=== PATIENT | female | born 1950 | race Caucasian/White ===

== ENCOUNTER 2019-05-24 10:32 | Emergency (ER) | payer MEDICARE, MEDICAID ==
[~2019-05-24] VITALS: Ht 167.6 cm; Wt 65.9 kg
[~2019-05-24 10:32] MED LIST: ALBUTEROL SUL0.083 % IN; AMOXICILLIN500 MG PO; ANTI-FUNGAL12 TOP; CLINDAMYCIN HC150 MG PO; SINGULAIR10 MG PO; nebulizer
[2019-05-24 11:11] LABS: HEMATOCRIT 40.4 % (37.0-47.0); HEMOGLOBIN 13.4 g/dl (12.0-16.0); IMMATURE GRANULOCYTES 0.2 % (0.0-5.0); MEAN CELL VOLUME 92.7 fL CALC (80.0-100.0); MEAN CORPUSCULAR HGB 30.7 pG CALC (26.0-32.0); MEAN CORPUSCULAR HGB CONC 33.2 g/L CALC (32.0-36.0); NEUT# 2.22 thou/uL (2.00-7.15); RED BLOOD COUNT 4.36 mill/uL (4.20-5.60); RED CELL DISTRI WIDTH 12.6 % (11.5-15.5)
[2019-05-24 11:29] LABS: ANION GAP 15 (6-22 (CALC)); BUN 9 mg/dL (8-23); BUN/CREATININE RATIO 30 (12-20 (CALC)); CARBON DIOXIDE 31 mmol/l (22-30); CHLORIDE 89 mmol/l (95-108); CREATININE 0.3 mg/dL (0.5-1.0); GFR > 60 ML/MIN (>=60 (CALC)); GFR FOR AFR.AMER. > 60 ML/MIN (>=60 (CALC)); POTASSIUM 4.3 mmol/l (3.5-5.1); SODIUM 132 mmol/l (137-146)
[2019-05-24] MEDS ORDERED: VISTARIL 50MG C50 M1 PO (11:49)
[2019-05-24 12:08] VITALS: BP 156/75
== END 2019-05-24 12:22 | disposition home or self-care (01) ==
LOC: ED 10:32
PROVIDERS: Family Medicine
DX: F41.9 Anxiety disorder, unspecified (principal); J44.9 Chronic obstructive pulmonary disease, unspecified

== ENCOUNTER 2020-10-31 15:56 | Emergency (ER) | payer MEDICARE, MEDICAID ==
[~2020-10-31] VITALS: Ht 167.6 cm; Wt 45.0 kg
[~2020-10-31 15:56] MED LIST changes: +VISTARIL 50MG C50 M1 PO
[2020-10-31 17:15] LABS: HEMATOCRIT 20.2 % (37.0-47.0); IMMATURE GRANULOCYTES 0.5 % (0.0-5.0); MEAN CELL VOLUME 99.5 fL CALC (80.0-100.0); MEAN CORPUSCULAR HGB 31.5 pG CALC (26.0-32.0); MEAN CORPUSCULAR HGB CONC 31.7 g/dL CAL (32.0-36.0); NEUT# 9.05 thou/uL (2.00-7.15); RED BLOOD COUNT 2.03 mill/uL (4.20-5.60); RED CELL DISTRI WIDTH 13.5 % (11.5-15.5)
[2020-10-31 17:18] LABS: HEMOGLOBIN 6.4 g/dl (12.0-16.0)
[2020-10-31 17:29] LABS: ALKALINE PHOSPHATASE 48 u/l (38-126); ANION GAP 10 (6-22 (CALC)); BILIRUBIN, TOTAL 0.4 mg/dL (0.0-1.4); BUN 16 mg/dL (8-23); BUN/CREATININE RATIO 28 (12-20 (CALC)); CARBON DIOXIDE 33 mmol/l (22-30); CHLORIDE 92 mmol/l (95-108); CREATININE 0.6 mg/dL (0.5-1.0); GFR > 60 ML/MIN (>=60 (CALC)); GFR FOR AFR.AMER. > 60 ML/MIN (>=60 (CALC)); POTASSIUM 4.7 mmol/l (3.5-5.1); SGOT/AST 54 u/l (9-36); SODIUM 130 mmol/l (137-146)
[2020-10-31 18:19] LABS: URINE BILIRUBIN - DIPSTICK NEGATIVE (NEGATIVE); URINE BLOOD DIPSTICK MODERATE (NEGATIVE); URINE COLOR YELLOW; URINE GLUCOSE - DIPSTICK NEGATIVE (NEGATIVE); URINE KETONE NEGATIVE (NEGATIVE); URINE LEUK ESTERASE NEGATIVE (NEGATIVE); URINE PROTEIN - DIPSTICK NEGATIVE (NEG-TRACE); URINE SPECIFIC GRAVITY 1.025; URINE UROBILINOGEN - DIPSTICK 0.2 E.U./dL (0.2)
[2020-10-31 18:29] LABS: URINE NITRITE - DIPSTICK NEGATIVE (Negative)
[2020-10-31 19:06] LABS: URINE SQUAMOUS EPITHELIAL CELL FEW EPI/hpf (0-FEW); URINE WBC 0-2 WBC/hpf (0-5)
[2020-10-31 20:46] VITALS: BP 144/75
[2020-10-31 22:07] VITALS: BP 144/75
== END 2020-10-31 22:07 | disposition short-term general hospital (02) ==
LOC: ED 15:56
PROVIDERS: Emergency Medicine
PROC: 30233N1 Transfusion of Nonautologous Red Blood Cells into Peripheral Vein, Percutaneous Approach (ICD-10-PCS; principal; 2020-10-31)
DX: N93.9 Abnormal uterine and vaginal bleeding, unspecified (principal); D50.0 Iron deficiency anemia secondary to blood loss (chronic); E87.1 Hypo-osmolality and hyponatremia; J44.9 Chronic obstructive pulmonary disease, unspecified; N83.201 Unspecified ovarian cyst, right side
CPT/HCPCS: P9016

== ENCOUNTER 2021-06-15 11:46 | Day surgery (SDC) | payer MEDICARE, MEDICAID ==
[2021-06-15] MEDS ORDERED: B12 FAST DIS5000 MCG PO (11:54)
[2021-06-15 15:49] VITALS: BP 108/69
== END 2021-06-15 15:52 | disposition home or self-care (01) ==
LOC: ORM 11:46
PROVIDERS: ATTEND Urology
PROC: 0T768DZ Dilation of Right Ureter with Intraluminal Device, Via Natural or Artificial Opening Endoscopic (ICD-10-PCS; principal; 2021-06-15)
PROC: 0TP98DZ Removal of Intraluminal Device from Ureter, Via Natural or Artificial Opening Endoscopic (ICD-10-PCS; 2021-06-15)
PROC: BT141ZZ Fluoroscopy of Kidneys, Ureters and Bladder using Low Osmolar Contrast (ICD-10-PCS; 2021-06-15)
DX: N13.1 Hydronephrosis with ureteral stricture, not elsewhere classified (principal); C53.9 Malignant neoplasm of cervix uteri, unspecified; J44.9 Chronic obstructive pulmonary disease, unspecified; E87.1 Hypo-osmolality and hyponatremia; Z99.81 Dependence on supplemental oxygen; Z87.891 Personal history of nicotine dependence; Z92.3 Personal history of irradiation; Z92.21 Personal history of antineoplastic chemotherapy
CPT/HCPCS: C1769; J1956

== ENCOUNTER 2021-10-26 07:35 | Day surgery (SDC) | payer MEDICARE, MEDICAID ==
[~2021-10-26] VITALS: Ht 165.1 cm; Wt 52.2 kg
[~2021-10-26 07:35] MED LIST changes: +B12 FAST DIS5000 MCG PO
[2021-10-26 10:08] VITALS: BP 164/95
== END 2021-10-26 10:05 | disposition home or self-care (01) ==
LOC: ORM 07:35
PROVIDERS: ATTEND Urology
PROC: 0T768DZ Dilation of Right Ureter with Intraluminal Device, Via Natural or Artificial Opening Endoscopic (ICD-10-PCS; principal; 2021-10-26)
PROC: 0TP98DZ Removal of Intraluminal Device from Ureter, Via Natural or Artificial Opening Endoscopic (ICD-10-PCS; 2021-10-26)
PROC: BT1D1ZZ Fluoroscopy of Right Kidney, Ureter and Bladder using Low Osmolar Contrast (ICD-10-PCS; 2021-10-26)
DX: N13.0 Hydronephrosis with ureteropelvic junction obstruction (principal); J44.9 Chronic obstructive pulmonary disease, unspecified; E87.1 Hypo-osmolality and hyponatremia; Z99.81 Dependence on supplemental oxygen; Z87.891 Personal history of nicotine dependence; Z85.41 Personal history of malignant neoplasm of cervix uteri; Z92.3 Personal history of irradiation; Z92.21 Personal history of antineoplastic chemotherapy
CPT/HCPCS: C1769; J1956; Q9967

== ENCOUNTER 2022-02-15 12:48 | Emergency (ER) | payer MEDICARE ==
[~2022-02-15] VITALS: Ht 165.1 cm; Wt 53.3 kg
[2022-02-15 13:55] LABS: HEMATOCRIT 37.1 % (37.0-47.0); IMMATURE GRANULOCYTES 0.2 % (0.0-5.0); MEAN CELL VOLUME 93.5 fL CALC (80.0-100.0); MEAN CORPUSCULAR HGB 30.2 pG CALC (26.0-32.0); MEAN CORPUSCULAR HGB CONC 32.3 g/dL CAL (32.0-36.0); NEUT# 3.59 thou/uL (2.00-7.15); RED BLOOD COUNT 3.97 mill/uL (4.20-5.60); RED CELL DISTRI WIDTH 12.7 % (11.5-15.5)
[2022-02-15 14:18] LABS: ALBUMIN 4.3 g/dL (3.2-5.0); ALKALINE PHOSPHATASE 51 u/l (38-126); ANION GAP 11 (6-22 (CALC)); BILIRUBIN, TOTAL 0.4 mg/dL (0.0-1.4); BUN 16 mg/dL (8-23); BUN/CREATININE RATIO 30 (12-20 (CALC)); C-REACTIVE PROTEIN < 0.5 mg/dL (0-0.9); CARBON DIOXIDE 34 mmol/l (22-30); CHLORIDE 91 mmol/l (95-108); CREATININE 0.5 mg/dL (0.5-1.0); GFR FOR AFR.AMER. > 60 ML/MIN (>=60 (CALC)); GFR OTHER RACES > 60 ML/MIN (>=60 (CALC)); POTASSIUM 4.3 mmol/l (3.5-5.1); SGOT/AST 24 u/l (9-36); SODIUM 132 mmol/l (137-146); TOTAL PROTEIN 6.8 g/dL (6.3-8.2)
[2022-02-15] MEDS ORDERED: OMNICEF300 MG PO (16:00)
[2022-02-15] MEDS ORDERED: BACTRIM DS1 TAB PO (16:00)
[2022-02-15 16:40] VITALS: BP 155/87
== END 2022-02-15 16:40 | disposition home or self-care (01) ==
LOC: ED 12:48
PROVIDERS: Nurse Practitioner
DX: L03.213 Periorbital cellulitis (principal); J44.9 Chronic obstructive pulmonary disease, unspecified
CPT/HCPCS: Q9967

== ENCOUNTER 2022-04-19 07:58 | Day surgery (SDC) | payer MEDICARE ==
[~2022-04-19 07:58] MED LIST changes: +BACTRIM DS1 TAB PO; +OMNICEF300 MG PO
[2022-04-19 10:55] VITALS: BP 142/75
== END 2022-04-19 10:25 | disposition home or self-care (01) ==
LOC: ORM 07:58
PROVIDERS: ATTEND Urology
PROC: 0T768DZ Dilation of Right Ureter with Intraluminal Device, Via Natural or Artificial Opening Endoscopic (ICD-10-PCS; principal; 2022-04-19)
PROC: 0TP98DZ Removal of Intraluminal Device from Ureter, Via Natural or Artificial Opening Endoscopic (ICD-10-PCS; 2022-04-19)
DX: N13.39 Other hydronephrosis (principal); C53.9 Malignant neoplasm of cervix uteri, unspecified; E87.1 Hypo-osmolality and hyponatremia; J44.9 Chronic obstructive pulmonary disease, unspecified; Z99.81 Dependence on supplemental oxygen; Z87.891 Personal history of nicotine dependence; Z92.21 Personal history of antineoplastic chemotherapy; Z92.3 Personal history of irradiation
CPT/HCPCS: C1769; J1956

== ENCOUNTER 2022-12-27 11:02 | Day surgery (SDC) | payer MEDICARE ==
[~2022-12-27] VITALS: Ht 165.1 cm; Wt 60.8 kg
[2022-12-27 14:23] VITALS: BP 132/88
== END 2022-12-27 14:47 | disposition home or self-care (01) ==
LOC: ORM 11:02
PROVIDERS: ATTEND Urology
PROC: 0TP98DZ Removal of Intraluminal Device from Ureter, Via Natural or Artificial Opening Endoscopic (ICD-10-PCS; principal; 2022-12-27)
PROC: 0T768DZ Dilation of Right Ureter with Intraluminal Device, Via Natural or Artificial Opening Endoscopic (ICD-10-PCS; 2022-12-27)
DX: N13.0 Hydronephrosis with ureteropelvic junction obstruction (principal); C53.9 Malignant neoplasm of cervix uteri, unspecified; J44.9 Chronic obstructive pulmonary disease, unspecified; E87.1 Hypo-osmolality and hyponatremia; Z99.81 Dependence on supplemental oxygen; Z92.21 Personal history of antineoplastic chemotherapy; Z92.3 Personal history of irradiation; Z87.891 Personal history of nicotine dependence
CPT/HCPCS: C1769; J0131; J1956; Q9966

== ENCOUNTER 2023-01-31 12:04 | Inpatient (IN) | payer MEDICARE, MEDICAID ==
[~2023-01-31] VITALS: Ht 165.1 cm; Wt 57.8 kg
--- NOTE | 2023-01-31 12:10 | NUR ---
PATIENT TO ROOM 6 VIA WHEELCHAIR
[2023-01-31 12:39] LABS: BASO% 0.6 % (0-3); EOS% 0.5 % (0-8); HEMATOCRIT 33.1 % (37.0-47.0); HEMOGLOBIN 10.5 g/dl (12.0-16.0); IMMATURE GRANULOCYTES 0.2 % (0.0-5.0); LYMPH% 9.5 % (15-41); MEAN CORPUSCULAR HGB 28.3 pG CALC (26.0-32.0); MEAN CORPUSCULAR HGB CONC 31.7 g/dL CAL (32.0-36.0); MONO% 11.3 % (2-13); NEUT# 5.08 thou/uL (2.00-7.15); NEUT% 77.9 % (42-76); RED BLOOD COUNT 3.71 mill/uL (4.20-5.60); RED CELL DISTRI WIDTH 12.3 % (11.5-15.5)
[2023-01-31 12:54] LABS: MEAN CELL VOLUME 89.2 fL CALC (80.0-100.0)
[2023-01-31 13:01] LABS: ALBUMIN 4.1 g/dL (3.2-5.0); ALKALINE PHOSPHATASE 58 u/l (38-126); BUN 14 mg/dL (8-23); BUN/CREATININE RATIO 22 (12-20 (CALC)); CARBON DIOXIDE 37 mmol/l (22-30); CHLORIDE 83 mmol/l (95-108); CREATININE 0.6 mg/dL (0.5-1.0); GFR FOR AFR.AMER. > 60 ML/MIN (>=60 (CALC)); GFR OTHER RACES > 60 ML/MIN (>=60 (CALC)); POTASSIUM 4.4 mmol/l (3.5-5.1); SGOT/AST 36 u/l (9-36); TOTAL PROTEIN 7.5 g/dL (6.3-8.2)
[2023-01-31 13:06] LABS: ANION GAP 9 (6-22 (CALC)); BILIRUBIN, TOTAL 0.6 mg/dL (0.02-1.3); SODIUM 125 mmol/l (137-146)
--- NOTE | 2023-01-31 14:10 | NUR ---
PATIENT ASSISTED TO [facility]
--- NOTE | 2023-01-31 15:50 | NUR ---
Reassessment of patient completed. No distress noted.
--- NOTE | 2023-01-31 16:20 | NUR ---
Reassessment of patient completed. No distress noted.
--- NOTE | 2023-01-31 18:15 | NUR ---
REPORT CALLED TO SANGEETA QUINONES
--- NOTE | 2023-01-31 18:32 | NUR ---
PATIENT TAKEN TO FLOOR ROOM 271.
[2023-01-31 18:42] VITALS: BP 160/97
--- NOTE | 2023-01-31 20:03 | NUR ---
PT RESTING IN SEMI FOLWERS POSITION. BEDSIDE REPORT RECIEVED. PT A/OX3. RESPIRATIONS EVEN AND UNLABORED ON 2L NC, HOME DEPENDENT. LUNG SOUNDS DIMINISHED THROUGHOUT. PT REPORTS COUGH BEFORE ADMINISION BUT NO CURRENT.HEART RHYTHM NORMAL WITH TELE IN PLACE. BOWEL SOUNDS ACTIVE. LBM 01/30/23. SKIN INTACT. PEDAL PULSES WEAK. TRACE EDEMA NOTED. PT DENIES OF ANY PAINS OR DISCOMFORTS. PT ORIENTED TO ROOM AND CALL LIGHT SYSTEM. ALL SAFETY PRECAUTIONS ARE IN PLACE WITH CALL LIGHT IN REACH.
[2023-01-31 20:05] VITALS: BP 141/77
[2023-01-31 23:54] VITALS: BP 139/59
--- NOTE | 2023-02-01 01:25 | NUR ---
PT SLEEPING IN SEMI FOWLERS POSITION. RESPIRATIONS EVEN AND UNLABORE DON 2L NC. TELE MONITORING IN PLACE. NO S/S OF DISTRESS. ALL SAFETY PRECAUTIONS IN PLACE WITH CALL LIGHT IN REACH
[2023-02-01 03:52] VITALS: BP 153/88
--- NOTE | 2023-02-01 04:05 | NUR ---
PT RESTING IN SEMI FOWLERS POSITION. RESPIRATIONS EVEN AND UNLABORED ON 2L NC. TELE MONITORING IN PLACE. IV SITE NOTED. PT DENIES OF ANY NEEDS AT THIS TIME. ALL SAFETY PRECAUTIONS ARE IN PLACE WITH CALL LIGHT IN REACH. ISOLATION PRECAUTIONS IN PLACE
[2023-02-01 06:30] VITALS: BP 149/63
[2023-02-01 06:47] LABS: HEMATOCRIT 32.9 % (37.0-47.0); HEMOGLOBIN 10.5 g/dl (12.0-16.0); MEAN CELL VOLUME 89.4 fL CALC (80.0-100.0); MEAN CORPUSCULAR HGB 28.5 pG CALC (26.0-32.0); MEAN CORPUSCULAR HGB CONC 31.9 g/dL CAL (32.0-36.0); RED BLOOD COUNT 3.68 mill/uL (4.20-5.60); RED CELL DISTRI WIDTH 12.3 % (11.5-15.5)
[2023-02-01 07:15] LABS: ALKALINE PHOSPHATASE 60 u/l (38-126); ANION GAP 11 (6-22 (CALC)); BILIRUBIN, TOTAL 0.5 mg/dL (0.02-1.3); BUN 21 mg/dL (8-23); BUN/CREATININE RATIO 27 (12-20 (CALC)); CARBON DIOXIDE 38 mmol/l (22-30); CHLORIDE 84 mmol/l (95-108); CREATININE 0.8 mg/dL (0.5-1.0); GFR FOR AFR.AMER. > 60 ML/MIN (>=60 (CALC)); GFR OTHER RACES > 60 ML/MIN (>=60 (CALC)); POTASSIUM 4.6 mmol/l (3.5-5.1); SGOT/AST 28 u/l (9-36); SODIUM 128 mmol/l (137-146); TOTAL PROTEIN 7.1 g/dL (6.3-8.2)
[2023-02-01 11:32] VITALS: BP 146/65
[2023-02-01 13:52] LABS: C-REACTIVE PROTEIN 1.3 mg/dL (0-0.9); MAGNESIUM 2.1 mg/dL (1.6-2.3)
[2023-02-01 14:56] VITALS: BP 125/62
--- NOTE | 2023-02-01 19:26 | NUR ---
PATIENT SITTING UP IN CHAIR. ALERT AND ABLE TO MAKE NEEDS KNOWN. ASSESSMENT COMPLETE. NO COMPLAINTS OF PAIN AT THIS TIME. LUNGS DIMINISHED THROUGHOUT. NO COUGH OBSERVED AT THIS TIME. OXYGEN AT 2L VIA NC. PATIENT WEARS AT HOME WELL. NO DISTRESS NOTED. MATHEW WRAPS APPLIED TO BLE PER DOCTOR REQUEST. SMALL SITE TO LOWER RIGHT LEG APPEAR WEAPING MINIMAL AMOUNT. NON ADHESIVE PLACED OVER IT. PLUS ONE PITTING EDEMA OBSERVED TO LOWER EXTREMS. LEFT LOWER EXTREMITY COOL TO TOUCH. RIGHT LOWER EXTREM COOL TO TOUCH BUT LESS THEN LEFT. CALL LIGHT AND BELONGINGS IN REACH.
[2023-02-01 20:07] VITALS: BP 158/88
--- NOTE | 2023-02-01 23:15 | NUR ---
PATIENT RESTING IN BED. NO COMPLAINTS VOICED AT THIS TIME. USES CALL [place] FOR ASSISTANCE. APPEARS A LITTLE UNSTEADY ON FEET.
[2023-02-01 23:55] VITALS: BP 136/68
[2023-02-02 04:14] VITALS: BP 128/74
--- NOTE | 2023-02-02 04:25 | NUR ---
PATIENT REMAINS RESTING IN BED. NO COMPLAINTS VOICED. NO DISTRESS NOTED. BED REMAINS IN LOW POSITION. CALL [place] IN REACH.
[2023-02-02 06:15] VITALS: BP 131/79
--- NOTE | 2023-02-02 07:00 | NUR ---
RECEIVED BEDSIDE REPORT FROM STACIE BRISCOE. PT IS RESTING IN BED AWAKE. VSS. ALL SAFETY MEASURES IN PLACE. NO NEEDS AT THIS TIME.
[2023-02-02 08:47] LABS: ALBUMIN 4.1 g/dL (3.2-5.0); ALKALINE PHOSPHATASE 53 u/l (38-126); ANION GAP 12 (6-22 (CALC)); BILIRUBIN, TOTAL 0.4 mg/dL (0.02-1.3); BUN 29 mg/dL (8-23); BUN/CREATININE RATIO 32 (12-20 (CALC)); CARBON DIOXIDE 37 mmol/l (22-30); CHLORIDE 84 mmol/l (95-108); CREATININE 0.9 mg/dL (0.5-1.0); GFR FOR AFR.AMER. > 60 ML/MIN (>=60 (CALC)); GFR OTHER RACES > 60 ML/MIN (>=60 (CALC)); MAGNESIUM 2.1 mg/dL (1.6-2.3); SGOT/AST 29 u/l (9-36); SODIUM 129 mmol/l (137-146)
--- NOTE | 2023-02-02 09:15 | NUR ---
PT SITTING ON SIDE OF BED WAITING TO GET IN SHOWER. AFTR HER SHOWER RN WILL REPLACE LEG WRAPS.
[2023-02-02 10:46] VITALS: BP 141/86
[2023-02-02 12:49] LABS: HEMATOCRIT 35.5 % (37.0-47.0); HEMOGLOBIN 11.3 g/dl (12.0-16.0); MEAN CELL VOLUME 90.1 fL CALC (80.0-100.0); MEAN CORPUSCULAR HGB 28.7 pG CALC (26.0-32.0); MEAN CORPUSCULAR HGB CONC 31.8 g/dL CAL (32.0-36.0); RED BLOOD COUNT 3.94 mill/uL (4.20-5.60); RED CELL DISTRI WIDTH 12.5 % (11.5-15.5)
[2023-02-02 14:52] VITALS: BP 136/91
--- NOTE | 2023-02-02 20:00 | NUR ---
PATIENT RESTING IN BED AT THIS TIME-AWAKE ALERT AND ORIENTEDX3. O2 VIA NASAL CANNULA AT 2LPM IN PLACE. O2 SAT IS 98%. PATIENT WITH IV SITE TO LAC THAT IS LEAKING AND SITE D/C'ED WITH CATH INTACT. NEW IV SITE STARTED TO LEFT FOREARM-#22 WITH GOOD BLOOD RETURN. IV ANTIBIOTICS INFUSING ORDERED. TELE MONITOR IN PLACE. VOIDING QS YELLOW URINE IN BR. PATIENT WITH BLE SWELLING-ENCOURAGED PATIENT TO ELEVATE FEET WHILE IN BED. SAFETY PRECAUTIONS REINFORCED. CALL LIGHT IN REACH. WILL CONT TO MONITOR.
[2023-02-02 20:16] VITALS: BP 147/80
[2023-02-03 00:16] VITALS: BP 153/87
--- NOTE | 2023-02-03 00:27 | NUR ---
PATIENT RESTING IN BED WITH HOB ELEVATED AND O2 VIA NASAL CANNULA IN PLACE. EYES ARE CLOSED AND RESPS ARE EVEN AND UNLABORED. TELE MONITOR IN PLACE. IV SITE TO LEFT FOREARM IN PLACE. CALL LIGHT IN REACH, WILL CONT TO MONITOR.
--- NOTE | 2023-02-03 04:34 | NUR ---
RESTING IN BED WITH O2 VIA NASAL CANNULA IN PLACE. TELE MONITOR IN PLACE. SALINE LOCK TO LEFT FOREARM IN PLACE. CALL LIGHT IN REACH. WILL CONT TO MONITOR.
[2023-02-03 05:45] VITALS: BP 164/82
[2023-02-03 06:35] VITALS: BP 141/79
[2023-02-03 09:26] LABS: BASO% 0.2 % (0-3); EOS% 0.2 % (0-8); HEMATOCRIT 34.1 % (37.0-47.0); HEMOGLOBIN 10.8 g/dl (12.0-16.0); IMMATURE GRANULOCYTES 0.1 % (0.0-5.0); LYMPH% 12.3 % (15-41); MEAN CELL VOLUME 91.4 fL CALC (80.0-100.0); MEAN CORPUSCULAR HGB CONC 31.7 g/dL CAL (32.0-36.0); MONO% 13.8 % (2-13); NEUT# 7.59 thou/uL (2.00-7.15); NEUT% 73.4 % (42-76); RED BLOOD COUNT 3.73 mill/uL (4.20-5.60); RED CELL DISTRI WIDTH 12.5 % (11.5-15.5)
[2023-02-03 09:39] LABS: ALBUMIN 4.5 g/dL (3.2-5.0); ALKALINE PHOSPHATASE 50 u/l (38-126); ANION GAP 14 (6-22 (CALC)); BUN 29 mg/dL (8-23); BUN/CREATININE RATIO 34 (12-20 (CALC)); CARBON DIOXIDE 37 mmol/l (22-30); CHLORIDE 85 mmol/l (95-108); CREATININE 0.8 mg/dL (0.5-1.0); GFR FOR AFR.AMER. > 60 ML/MIN (>=60 (CALC)); GFR OTHER RACES > 60 ML/MIN (>=60 (CALC)); POTASSIUM 3.5 mmol/l (3.5-5.1); SGOT/AST 33 u/l (9-36); SODIUM 132 mmol/l (137-146); TOTAL PROTEIN 7.8 g/dL (6.3-8.2)
[2023-02-03 09:44] LABS: BILIRUBIN, TOTAL 0.7 mg/dL (0.02-1.3)
--- NOTE | 2023-02-03 10:01 | NUR ---
PT SITTING UP ON SIDE OF BED EATING BREAKFAST. PT IS ALERT AND ORIENTED X 3, PT HAS NO C/O PAIN AT THIS TIME. PT TELE ON WITH ALL LEADS ATTACHED. LUNG SOUNDS DIMINISHED THROUGHOUT. ABD SOFT AND BS ACTIVE. PT HAS +1 PITTING, WEEPING EDEMA. PT AMBULATES WELL TO BATHROOM FOR TOILETING NEEDS. IV SITE TO LFA CLEAN AND INTACT. PT CONTINUES REMAINS ON O2 @ 2 LITERS VIA NC. PT HAS CALL LIGHT WITHIN REACH AND ALL SAFETY MEASURES IN PLACE AT THIS TIME.
[2023-02-03 11:19] VITALS: BP 130/79
--- NOTE | 2023-02-03 12:00 | NUR ---
PT SITTING UP IN CHAIR AT BEDSIDE, EATING LUNCH. PT HAS NO C/O PAIN AT THIS TIME. DR. TRUJILLO ORDERED PT TO HAVE DAVID HOSE PLACED AND WRAPPED DUE TO WEEPING EDEMA.
--- NOTE | 2023-02-03 14:10 | NUR ---
COMPRESSION STOCKINGS APPLIED TO BLE. WEEPING SORE TO RLE, COVERED WITH TELFA.
[2023-02-03 15:31] VITALS: BP 134/54
[2023-02-03] MEDS ORDERED: TAMIFLU SUSP 6MG/ML PO (15:51)
[2023-02-03] MEDS ORDERED: MEDDOSEPAK PO (15:52)
[2023-02-03] MEDS ORDERED: SYMBICORT1 AE1 IN (15:55)
[2023-02-03] MEDS ORDERED: SPIRIVA HANDIH18 MCG INHW/SPAC (15:55)
[2023-02-03] MEDS ORDERED: LASIX 40 MG TAB40 MG PO (15:59)
--- NOTE | 2023-02-03 17:19 | NUR ---
PT IN ROOM WITH FAMILY AT BEDSIDE. PT HAS NO CHANGE IN STATUS AT THIS TIME. PT HAS CALL LIGHT WITHIN REACH AND SAFETY MEASURES IN PLACE AT THIS TIME.
--- NOTE | 2023-02-03 17:47 | NUR ---
Discharge instructions given. Patient verbalizes understanding of same. Discharged in stable condition via Wheelchair to Home with family. All belongings sent with pt.
== END 2023-02-03 18:10 | disposition home or self-care (01) | DRG 191 ==
LOC: ED 12:04 → ED-I 16:03 → ED 16:11 → MS2 16:12
PROVIDERS: Nurse Practitioner; ADMIT Student in an Organized Health Care Education/Training Program; ATTEND Student in an Organized Health Care Education/Training Program
DX: J44.1 Chronic obstructive pulmonary disease with (acute) exacerbation (principal); E87.1 Hypo-osmolality and hyponatremia; N13.30 Unspecified hydronephrosis; I50.9 Heart failure, unspecified; J10.1 Influenza due to other identified influenza virus with other respiratory manifestations; K56.41 Fecal impaction; R19.00 Intra-abdominal and pelvic swelling, mass and lump, unspecified site; I87.2 Venous insufficiency (chronic) (peripheral); Z99.81 Dependence on supplemental oxygen; Z85.41 Personal history of malignant neoplasm of cervix uteri; Z92.3 Personal history of irradiation; Z96.0 Presence of urogenital implants; Z92.21 Personal history of antineoplastic chemotherapy; Z20.822 Contact with and (suspected) exposure to COVID-19
CPT/HCPCS: J1650; J2060; Q9967